=== PATIENT | female | born 1955 | race Caucasian/White ===

== ENCOUNTER 2017-01-09 03:32 | Emergency (ER) | payer MEDICARE, MEDICAID ==
[2017-01-09] MEDS ORDERED: Lisinopril 10 MG Tab PO ONE (03:39)
[2017-01-09] MEDS ORDERED: buPROPion 150 MG Tab.SR PO ONE (03:40)
[2017-01-09] MEDS ORDERED: Levothyroxine 112 MCG Tab PO ONE (03:41)
--- NOTE | 2017-01-09 03:44 | EDM.PDOC ---
ED HPI GENERAL MEDICAL PROBLEM - General Chief Complaint: General Stated Complaint: [facility] Time Seen by Provider: 01/09/17 03:42 Source of Information: Reports: Patient History Limitations: Reports: No Limitations - History of Present Illness INITIAL COMMENTS - FREE TEXT/NARRATIVE: pt has been at the [facility] and she has not been receiving her medication for her bp/ Her bp was vry high tonight over 200 systolic. Onset: Gradual Duration: Hour(s): headache Pain Score (Numeric/FACES): 4 - Related Data Allergies Allergy/AdvReac Type Severity Reaction Status Date / Time Penicillins Allergy Swelling Verified 01/09/17 03:56 Home Meds: Home Meds Citalopram Hydrobromide [Celexa] 40 mg PO DAILY 01/09/17 [History] Estradiol [Estrace] 1 mg PO DAILY 01/09/17 [History] Hydrochlorothiazide/Lisinopril [Lisinopril-HCTZ 20-25 MG] 1 tab PO DAILY [History] Lansoprazole [Prevacid] 15 mg PO DAILY 01/09/17 [History] Levothyroxine 125 mcg PO ACBREAKFAST 01/09/17 [History] buPROPion HCl [Bupropion HCl Sr] 150 mg PO BID 01/09/17 [History] buPROPion HCl [buPROPion SR] 100 mg PO DAILY 01/09/17 [History] medroxyPROGESTERone Acetate [Provera] 2.5 mg PO DAILY 01/09/17 [History] ED ROS GENERAL - Review of Systems Review Of Systems: See Below Constitutional: Reports: No Symptoms HEENT: Reports: No Symptoms Respiratory: Reports: No Symptoms Cardiovascular: Reports: No Symptoms Endocrine: Reports: No Symptoms GI/Abdominal: Reports: No Symptoms : Reports: No Symptoms Musculoskeletal: Reports: No Symptoms Skin: Reports: No Symptoms Neurological: Reports: Headache, Other ( bp was uite elevated. ) ED EXAM, GENERAL - Physical Exam Exam: See Below Free Text/Narrative:: pt was sent to the hospital because her bp was over 200. She has not received her meds for about 2 weeks. She has not been able to sleep and she had a severe hedache . Exam Limited By: No Limitations General Appearance: Alert, Anxious, Moderate Distress Ears: Normal TMs Ear Exam: Bilateral Ear: Auricle Normal, Canal Normal, TM normal Nose: Normal Inspection Throat/Mouth: Normal Inspection Head: Atraumatic Neck: Normal Inspection Respiratory/Chest: No Respiratory Distress Cardiovascular: Regular Rate, Rhythm GI/Abdominal: Soft, Non-Tender (Female) Exam: Deferred Rectal (Female) Exam: Deferred Back Exam: Normal Inspection Extremities: Normal Inspection Neurological: Alert, Oriented, Normal Cognition Psychiatric: Anxious Course - Vital Signs Last Recorded V/S: Last Vital Signs Temp 36.9 C 01/09/17 04:50 Pulse 65 01/09/17 04:50 Resp 16 01/09/17 04:50 BP 152/82 H 01/09/17 04:50 Pulse Ox 97 01/09/17 04:50 - Orders/Labs/Meds Meds: Medications Discontinued Medications Generic Name Dose Route Start Last Admin Trade Name Freq PRN Reason Stop Dose Admin Bupropion HCl 150 mg 01/09/17 03:40 01/09/17 04:41 Wellbutrin Sr PO 01/09/17 03:41 150 mg ONETIME ONE Administration Ketorolac Tromethamine 60 mg 01/09/17 03:49 01/09/17 04:33 Toradol IM 01/09/17 03:50 60 mg ONETIME ONE Administration Levothyroxine Sodium 112 mcg 01/09/17 03:41 01/09/17 04:41 Levothyroxine PO 01/09/17 03:42 112 mcg ONETIME ONE Administration Lisinopril 20 mg 01/09/17 03:39 01/09/17 04:30 Prinivil PO 01/09/17 03:40 20 mg ONETIME ONE Administration Lorazepam 0.5 mg 01/09/17 03:48 01/09/17 04:28 Ativan PO 01/09/17 03:49 0.5 mg ONETIME ONE Administration - Re-Assessments/Exams Free Text/Narrative Re-Assessment/Exam: 01/09/17 03:52 pt was given lisinopril 20mg, synthroid, wellbruiten 150mg and ativan .5. Departure - Departure Time of Disposition: 05:58 Disposition: Home, Self-Care 01 Condition: Fair Clinical Impression: Hypertension - Discharge Information Instructions: Hypertension, [id number] Referrals: PCP,None [Primary Care Provider] - Forms: ED Department Discharge Care Plan Goals: If pt i at the group home for another wek she needs to have a bp check. will resume all meds at this time. wellbriten, synthroid, zestoretic, estrace, provera, celexa., previacid.
[2017-01-09] MEDS ORDERED: LORazepam 0.5 MG Tab PO ONE (03:48)
[2017-01-09] MEDS ORDERED: Ketorolac 60 MG/2 ML SDV IM ONE (03:49)
[2017-01-09 04:51] VITALS: BP 152/82
== END 2017-01-09 05:55 | disposition home or self-care (01) ==
LOC: JP.ED 03:32
DX: I10 Essential (primary) hypertension (principal); Z79.899 Other long term (current) drug therapy; Z88.0 Allergy status to penicillin
CPT/HCPCS: 96372; 99284; A9270; J1885; 99283